=== PATIENT | male | born 1940 | race Caucasian/White ===

== ENCOUNTER 2022-12-14 16:54 | Emergency (ER) | payer MEDICARE, BC ==
[~2022-12-14] VITALS: Ht 177.8 cm; Wt 86.2 kg
[2022-12-14] MEDS ORDERED: MORPHINE SULFATE 4 MG/1 ML DISP.SYRIN IV ONE (17:15)
[2022-12-14] MEDS ORDERED: ONDANSETRON 4 MG/2 ML VIAL IV ONE (17:15)
[2022-12-14] MEDS ORDERED: ASPIRIN 81 MG TAB.CHEW PO ONE (17:15)
[2022-12-14] MEDS ORDERED: MORPHINE SULFATE 4 MG/1 ML DISP.SYRIN ONE (17:27)
[2022-12-14] MEDS ORDERED: ONDANSETRON 4 MG/2 ML VIAL ONE (17:27)
[2022-12-14] MEDS ORDERED: ASPIRIN 81 MG TAB.CHEW ONE (17:27)
[2022-12-14 17:29] LABS: BASOPHILS # (AUTO) 0.1 K/UL (0.0-0.2); BASOPHILS % (AUTO) 0.8 % (0.0-2.0); EOSINOPHILS # (AUTO) 0.1 K/uL (0.0-0.7); EOSINOPHILS % (AUTO) 2.1 % (0.0-7.0); HEMATOCRIT 42.7 % (36.7-47.1); HEMOGLOBIN 14.5 g/dL (12.5-16.3); LYMPHOCYTES # (AUTO) 1.6 K/uL (0.8-4.8); LYMPHOCYTES % (AUTO) 22.8 % (20.5-51.5); MEAN CORPUSCULAR HEMOGLOBIN 31.5 uug (23.8-33.4); MEAN CORPUSCULAR HGB CONC 34 g/dL (32.5-36.3); MEAN CORPUSCULAR VOLUME 92.5 fL (73.0-96.2); MONOCYTES # (AUTO) 0.6 K/uL (0.1-1.30); MONOCYTES % (AUTO) 7.8 % (0.0-11.0); NEUTROPHILS # (AUTO) 4.8 K/uL (1.8-8.9); NEUTROPHILS % (AUTO) 66.5 % (38.5-71.5); PLATELET COUNT (AUTO) 186 K/uL (152-348); RED BLOOD CELL COUNT(AUTO) 4.61 MIL/uL (4.06-5.63); RED CELL DISTRIBUTION WIDTH 14.2 % (12.1-16.2); WHITE BLOOD COUNT (AUTO) 7.2 K/uL (3.6-10.2)
[2022-12-14 17:32] LABS: DIFFERENTIAL COMMENT 1
[2022-12-14 17:50] LABS: CALCIUM 8.7 mg/dL (8.5-10.1); CARBON DIOXIDE 25 mmol/L (21-32); CHLORIDE 102 mmol/L (98-107); CREATININE 1.5 mg/dL (0.6-1.3); GLUCOSE 225 mg/dL (74-106); NT-PRO BNP 304 pg/mL (0-125); POTASSIUM 3.5 mmol/L (3.5-5.1); SODIUM SERUM 137 mmol/L (136-145); UREA NITROGEN, BLOOD 37 mg/dL (7-18)
[2022-12-14 20:17] VITALS: BP 115/72; TEMP 98; O2SAT 99
== END 2022-12-14 20:18 | disposition left against medical advice (07) ==
LOC: ER 16:57
DX: R07.89 Other chest pain (principal); N28.9 Disorder of kidney and ureter, unspecified; R79.89 Other specified abnormal findings of blood chemistry; E11.65 Type 2 diabetes mellitus with hyperglycemia; I10 Essential (primary) hypertension; E78.5 Hyperlipidemia, unspecified; I25.10 Atherosclerotic heart disease of native coronary artery without angina pectoris
CPT/HCPCS: 99285; 96374; 71045; 96375; 80048; 83880; 85025; 84484 ×2; 36415; 93005; J2405; J2270; A4663